=== PATIENT | female | born 1980 | race Caucasian/White ===

== ENCOUNTER 2017-07-14 18:04 | Emergency (ER) | payer BC ==
[2017-07-14 18:10] VITALS: BP 131/87; PULSE 76; TEMP 98.6; BMI 21.2
--- NOTE | 2017-07-14 19:16 | PDOC ---
History of Present Illness - General History Source: Old Records Exam Limitations: No Limitations - History of Present Illness Initial Comments: 07/14/17 19:54 36 y.o female with significant PMHx of HTN, s/p Cardiac ablation (2004), spontaneous pneumothorax, polycystic kidney disease, and migraine headaches, who presents to the emergency room today complaining of 3 days of a sore throat , nonproductive cough, body aches and chills. The patient denies nausea, vomiting, diarrhea. Denies chest pain, SOB. Denies recent travel or sick contact. PAST SURGICAL HISTORY: Cardiac ablation 2004 FAMILY HISTORY: no pertinent history SOCIAL HISTORY: Pt lives with family and is employed. MEDICATIONS: reviewed ALLERGIES: As per nursing notes PCP: Dr. Kayleigh Mckoy Review of systems General: +chills, body aches. No weakness, no weight loss HEENT: +sore throat. No change in vision. No ear pain Cardiovascular: No chest pain or shortness of breath Respiratory:+nonproductive cough. No wheezing. Gastrointestinal: No nausea, vomiting, diarrhea or constipation, No rectal bleeding Genitourinary: No dysuria, hematuria, or frequency Musculoskeletal: No joint or muscle pain or swelling Neurologic: No headache, vertigo, dizziness or loss of consciousness Psychiatric: No depression Skin: No rashes or easy bruising Endocrine: No increased thirst or abnormal weight change Allergic: No skin or latex allergy All other systems reviewed and normal Physical Exam GENERAL: The patient is awake, alert, and fully oriented, in no acute distress. HEENT: Posterior oropharynx with enlarged tonsils and surrounding erythema. No lesions. No exudate. No submandibular lymphadenopathy EYES: Pupils equal, round and reactive to light, extraocular movements intact, sclera anicteric, conjunctiva clear. EXTREMITIES: Normal range of motion, no edema. NEUROLOGICAL: Normal speech, normal gait. PSYCH: Normal mood, normal affect. SKIN: Warm, Dry, normal turgor, no rashes or lesions noted. <Basilio Badillossica - Last Filed: 07/14/17 19:55> - General History Source: Patient Exam Limitations: No Limitations - History of Present Illness Initial Comments: A portion of this note was documented by scribe services under my direction. I have reviewed the details of the note, within reason, and agree with the documentation. The case summary and management plan written by me. Assessment and plan: This is a 36-year-old female who comes in complaining of 2 days of fever and bodyaches and headaches. Patient has a nonproductive cough. Patient had also complained of a sore throat so a rapid strep was sent which was negative. Patient had an influenza screen sent as she did not get the flu shot this year. The influenza screen is still pending however patient's symptoms are consistent with presumptive flu so I will start her on Tamiflu discharge her said a prescription to her pharmacy and tomorrow morning she will call if the test was negative she will not get the prescription filled otherwise if it is positive she will get the prescription filled and take it as directed. Patient does have a primary care doctor she can follow-up with. Timing/Duration: reports: just prior to arrival <Uzma Griggs I - Last Filed: 07/14/17 20:21> - General Chief Complaint: Cold Symptoms Stated Complaint: SORE THROAT,COUGH Time Seen by Provider: 07/14/17 19:14 Past History <Gertrude Badillo - Last Filed: 07/14/17 19:55> - Past Medical History Asthma: No Cardiac Disorders: Yes (TACHYCARDIA WITH ABALTION 2004) CVA: No COPD: No Diabetes: No HTN: Yes Hypercholesterolemia: No Kidney Stones: Yes Other medical history: WPW - Surgical History Cardiac Surgery: Yes (ABLATION: 2004) Lung Surgery: Yes (L PNEUMOTHORAX) - Suicide/Smoking/Psychosocial Hx Smoking Status: No Smoking History: Never smoked Have you smoked in the past 12 months: No Number of Cigarettes Smoked Daily: 0 Hx Alcohol Use: No Drug/Substance Use Hx: No Substance Use Type: None <Uzma Griggs I - Last Filed: 07/14/17 20:21> - Past Medical History Allergies/Adverse Reactions: Allergies Allergy/AdvReac Type Severity Reaction Status Date / Time No Known Allergies Allergy Verified 07/14/17 18:05 Home Medications: Ambulatory Orders Hydrochlorothiazide [Hctz -] 25 mg PO DAILY 04/18/12 Metoprolol Succinate [Toprol XL -] 50 mg PO DAILY 07/14/17 Oseltamivir Phosphate [Tamiflu -] 75 mg PO BID #10 capsule 07/14/17 Respiratory Specific PMHX - Complaint Specific PMHX Angina: No Bronchitis: No Pneumonia: No Pulmonary Embolus: No TB (Tuberculosis): No <Uzma Griggs I - Last Filed: 07/14/17 20:21> *Physical Exam - Vital Signs Last Vital Signs Temp Pulse Resp BP Pulse Ox 98.6 F 76 18 131/87 100 07/14/17 18:05 07/14/17 18:05 07/14/17 18:05 07/14/17 18:05 07/14/17 18:05 <Gertrude Badillo - Last Filed: 07/14/17 19:55> - Vital Signs Last Vital Signs Temp Pulse Resp BP Pulse Ox 98.6 F 76 18 131/87 100 07/14/17 18:05 07/14/17 18:05 07/14/17 18:05 07/14/17 18:05 07/14/17 18:05 <Uzma Griggs I - Last Filed: 07/14/17 20:21> ED Treatment Course - ADDITIONAL ORDERS Additional order review: 07/14/17 18:43 Group A Strep Rapid Antigen - Final Throat NEGATIVE FOR THE ANTIGEN OF BETA HEMOLYTIC STREP GROUP A <Gertrude Badillo - Last Filed: 07/14/17 19:55> - ADDITIONAL ORDERS Additional order review: 07/14/17 18:43 Group A Strep Rapid Antigen - Final Throat NEGATIVE FOR THE ANTIGEN OF BETA HEMOLYTIC STREP GROUP A <Uzma Griggs I - Last Filed: 07/14/17 20:21> *DC/Admit/Observation/Transfer - Attestations Scribe Attestion: 07/14/17 19:54 Documentation prepared by JOSÉ MANUEL French, acting as medical assistant instructor for Uzma Griggs MD. <Gertrude Badillo - Last Filed: 07/14/17 19:55> - Discharge Dispostion Admit: No <Uzma Griggs I - Last Filed: 07/14/17 20:21> Diagnosis at time of Disposition: Influenza-like illness - Discharge Dispostion Disposition: HOME Condition at time of disposition: Stable - Referrals Referrals: Kayleigh Mckoy [Primary Care Provider] - - Patient Instructions Additional Instructions: Your symptoms are consistent with the flu. A test was sent for the flu however it will take several hours until it may come back. I am starting U on the medication for the flu and given your first dose here in the emergency room Tomorrow morning call the ER at [phone] and we will give you the results of your influenza screen. If it is positive go to the pharmacy and order picker her prescription for the Tamiflu take it one tablet twice a day for the next 5 days. Return to the emergency department immediately with ANY new, persistent or worsening symptoms. Continue any medications as previously prescribed by your physician. You should follow up with your primary doctor as soon as possible regarding today's emergency department visit. . Please make sure your doctor reviews the results of your emergency evaluation. Thank you for coming to the Emergency Department today for your care. It was a pleasure to see you today. Please note that your evaluation is INCOMPLETE until you follow-up with your doctor. - Post Discharge Activity Forms/Work/School Notes: Back to Work
[2017-07-14] MEDS ORDERED: OSELTAMIVIR PHOSPHATE 75 MG CAPSULE PO ONE (20:17)
[2017-07-14] MEDS ORDERED: ACETAMINOPHEN 500 MG TABLET (FP) PO ONE (20:17)
[2017-07-14] MEDS ORDERED: OSELTAMIVIR PHOSPHATE 75 MG CAPSULE ONE (20:19)
[2017-07-14] MEDS ORDERED: ACETAMINOPHEN 500 MG TABLET (FP) ONE (20:20)
== END 2017-07-14 20:25 | disposition home or self-care (01) ==
LOC: FER 18:04
DX: J00 Acute nasopharyngitis [common cold] (principal); I10 Essential (primary) hypertension; G43.909 Migraine, unspecified, not intractable, without status migrainosus; I51.9 Heart disease, unspecified
CPT/HCPCS: 87070; 87430; 87804; 99281-25

== ENCOUNTER 2017-09-17 18:34 | Emergency (ER) | payer BC ==
[2017-09-17 19:09] VITALS: BP 143/94; PULSE 60; TEMP 98.1; BMI 21.9
--- NOTE | 2017-09-17 19:59 | PDOC ---
History of Present Illness - General History Source: Patient, Old Records Exam Limitations: No Limitations - History of Present Illness Initial Comments: 09/17/17 20:27 The patient is a 37 year old female with a paste medical history of hypertension , status post Cardiac ablation (2004), spontaneous pneumothorax, polycystic kidney disease, and migraine headaches who presents to the Emergency Department with left forearm pain for 1 week and high blood pressure for 2 days. The patient states that she is unsure if there was any mechanism of injury that caused her left forearm pain. She notes that her pain starts proximally, radiates distally, and is lawrence in sensation. She states that her pain is exacerbated when she squeezes her forearm but denies any exacerbation of pain on movement. The patient notes that she saw her creel hand yesterday who noted that her blood pressure was high and that she should continue to monitor it. Today at work the patient went to the school nurse to have her blood pressure measured again. At that time the nurse noted to the patients blood pressure was still high. The patient called her doctor who told her to come to the Emergency department. <Elieser Carranza - Last Filed: 09/17/17 22:01> <Keily Jimenez - Last Filed: 09/18/17 03:36> - General Chief Complaint: Blood Pressure Problem Stated Complaint: HIGH BP, LEFT ELBOW TO WRIST PAIN Time Seen by Provider: 09/17/17 19:19 Past History <Elieser Carranza - Last Filed: 09/17/17 22:01> - Past Medical History Asthma: No Cardiac Disorders: Yes (WPW) CVA: No COPD: No Diabetes: No Disorders: Yes (POLYCYSTIC KIDNEY DISEASE) HTN: Yes Hypercholesterolemia: No Kidney Stones: (POLYCYSTIC KIDNEY) - Surgical History Cardiac Surgery: Yes (ABLATION: 2004 AND 2012) Lung Surgery: Yes (L PNEUMOTHORAX) - Suicide/Smoking/Psychosocial Hx Smoking Status: No Smoking History: Never smoked Have you smoked in the past 12 months: No Number of Cigarettes Smoked Daily: 0 Hx Alcohol Use: Yes (OCCASIONAL GLASS OF WINE) Drug/Substance Use Hx: No Substance Use Type: None <Keily Jimenez - Last Filed: 09/18/17 03:36> - Past Medical History Allergies/Adverse Reactions: Allergies Allergy/AdvReac Type Severity Reaction Status Date / Time No Known Allergies Allergy Verified 07/14/17 18:05 Home Medications: Ambulatory Orders Hydrochlorothiazide [Hctz -] 25 mg PO DAILY 04/18/12 Metoprolol Succinate [Toprol XL -] 50 mg PO HS 07/14/17 Multivitamin/Iron/Folic Acid [Centrum Adults Tablet] 1 each PO DAILY 09/17/17 Review of Systems - Review of Systems Able to Perform ROS?: Yes Comments:: 09/17/17 20:27 GENERAL/CONSTITUTIONAL: No fever or chills. No weakness. HEAD, EYES, EARS, NOSE AND THROAT: No change in vision. No ear pain or discharge. No sore throat. CARDIOVASCULAR: (+) Elevated blood pressure. No chest pain or shortness of breath. RESPIRATORY: No cough, wheezing, or hemoptysis. GASTROINTESTINAL: No nausea, vomiting, diarrhea or constipation. GENITOURINARY: No dysuria, frequency, or change in urination. MUSCULOSKELETAL: (+) Left forearm pain. No neck or back pain. SKIN: No rash NEUROLOGIC: No headache, vertigo, loss of consciousness, or change in strength/ sensation. ENDOCRINE: No increased thirst. No abnormal weight change. HEMATOLOGIC/LYMPHATIC: No anemia, easy bleeding, or history of blood clots. ALLERGIC/IMMUNOLOGIC: No hives or skin allergy. <Elieser Carranza - Last Filed: 09/17/17 22:01> *Physical Exam - Vital Signs Last Vital Signs Temp Pulse Resp BP Pulse Ox 98.1 F 60 16 143/94 100 09/17/17 18:36 09/17/17 18:36 09/17/17 18:36 09/17/17 18:36 09/17/17 18:36 - Physical Exam Comments: 09/17/17 20:27 GENERAL: Awake, alert, and fully oriented, in no acute distress HEAD: No signs of trauma EYES: PERRLA, EOMI, sclera anicteric, conjunctiva clear ENT: Auricles normal inspection, hearing grossly normal, nares patent, oropharynx clear without exudates. Moist mucosa NECK: Normal ROM, supple, no lymphadenopathy, JVD, or masses LUNGS: Breath sounds equal, clear to auscultation bilaterally. No wheezes, and no crackles HEART: Regular rate and rhythm, normal S1 and S2, no murmurs, rubs or gallops ABDOMEN: Soft, nontender, normoactive bowel sounds. No guarding, no rebound. No masses EXTREMITIES: (+) Pain on supination of left forearm and tenderness of the medial portion of the proximal ulna bone without deformity, edema, or ecchymosis , remainder of the extremity exam is normal. NEUROLOGICAL: Cranial nerves II through XII grossly intact. Normal speech, normal gait SKIN: Warm, Dry, normal turgor, no rashes or lesions noted. <Elieser Carranza - Last Filed: 09/17/17 22:01> - Vital Signs Last Vital Signs Temp Pulse Resp BP Pulse Ox 98.1 F 60 16 143/94 100 09/17/17 18:36 09/17/17 18:36 09/17/17 18:36 09/17/17 18:36 09/17/17 18:36 <Keily Jimenez - Last Filed: 09/18/17 03:36> Medical Decision Making - Medical Decision Making Documentation has been prepared under my direction and personally reviewed by me in its entirety. I attest that this documented accurately reflects all work, treatment, procedures and medical decision making performed by me. As noted above, this 37-year-old woman with multiple medical problems presents with several day history of progressive left forearm pain; she has no history of trauma or known overuse. She has mild tenderness of the proximal portion of the forearm and pain with supination/pronation. She is also sent here for evaluation of her blood pressure which with apparently was quite elevated earlier today. The value that we measured today, 143/94, while high is not severely elevated requiring treatment emergently. Forearm x-ray reveals no evidence of acute bony injury or other acute abnormality. Exam most consistent with medial epicondylitis. Margarito wrap applied to the proximal forearm. Patient has no previous orthopedist and was given referral information for Dr Khan/Dr. Ng for follow-up within the next week. Meanwhile, the patient should keep the Margarito wrap on during the day/off at night. Since the patient cannot take nonsteroidal anti-inflammatory medications, she is limited to taking Tylenol as needed for pain. <Keily Jimenez - Last Filed: 09/18/17 03:36> *DC/Admit/Observation/Transfer - Attestations Scribe Attestion: 09/17/17 20:28 Documentation prepared by Elieser Carranza, acting as medical imaging director for Keily Jimenez MD. <Elieser Carranza - Last Filed: 09/17/17 22:01> <Keily Jimenez - Last Filed: 09/18/17 03:36> Diagnosis at time of Disposition: Medial epicondylitis of left elbow Hypertension Qualifiers: Hypertension type: other secondary hypertension Qualified Code(s): I15.8 - Other secondary hypertension - Discharge Dispostion Disposition: HOME Condition at time of disposition: Stable - Referrals Referrals: Kayleigh Mckoy [Primary Care Provider] - Benigno Khan MD [Staff Physician] - - Patient Instructions Printed Discharge Instructions: Medial Epicondylitis Additional Instructions: Margarito wrap left forearm during the day until seen by orthopedist Follow-up with Dr. Khan/Dr Ng (hand orthopedic surgeons) within the next week Follow-up with your general doctor regarding your high blood pressure control as discussed - Post Discharge Activity
== END 2017-09-17 23:27 | disposition home or self-care (01) ==
LOC: FER 18:34
DX: I15.8 Other secondary hypertension (principal); M77.02 Medial epicondylitis, left elbow
CPT/HCPCS: 73090-TC-LT-FY; 84703; 99282-25

== ENCOUNTER 2017-09-18 12:44 | Emergency (ER) | payer BC ==
[2017-09-18 12:50] VITALS: BP 134/82; PULSE 65; TEMP 98.6; BMI 21.9
[2017-09-18] MEDS ORDERED: ACETAMINOPHEN 325 MG TABLET (FP) ONE (13:38)
--- NOTE | 2017-09-18 13:40 | PDOC ---
History of Present Illness - General Chief Complaint: Pain, Acute Stated Complaint: SWOLLEN LT ARM Time Seen by Provider: 09/18/17 13:03 History Source: Patient Exam Limitations: No Limitations - History of Present Illness Occurred: reports: yesterday Severity: reports: mild, moderate Pain Location: reports: lower extremity Associated Symptoms (Fall): denies symptoms Past History - Travel Traveled outside of the country in the last 30 days: No Close contact w/someone who was outside of country & ill: No - Past Medical History Allergies/Adverse Reactions: Allergies Allergy/AdvReac Type Severity Reaction Status Date / Time No Known Allergies Allergy Verified 09/18/17 12:47 Home Medications: Ambulatory Orders Hydrochlorothiazide [Hctz -] 25 mg PO DAILY 04/18/12 Metoprolol Succinate [Toprol XL -] 50 mg PO HS 07/14/17 Multivitamin/Iron/Folic Acid [Centrum Adults Tablet] 1 each PO DAILY 09/17/17 Asthma: No Cardiac Disorders: Yes (WPW) CVA: No COPD: No Diabetes: No Disorders: Yes (POLYCYSTIC KIDNEY DISEASE) HTN: Yes Hypercholesterolemia: No Kidney Stones: (POLYCYSTIC KIDNEY) - Surgical History Cardiac Surgery: Yes (ABLATION: 2004 AND 2012) Lung Surgery: Yes (L PNEUMOTHORAX) - Suicide/Smoking/Psychosocial Hx Smoking Status: No Smoking History: Never smoked Have you smoked in the past 12 months: No Number of Cigarettes Smoked Daily: 0 Hx Alcohol Use: Yes (OCCASIONAL GLASS OF WINE) Drug/Substance Use Hx: No Substance Use Type: None Trauma Specific PMHX - Complaint Specific PMHX Back Injury: No Neck Injury: No Review of Systems - Review of Systems Able to Perform ROS?: Yes Is the patient limited Niuean proficient: Yes Constitutional: Yes: Symptoms Reported, See HPI, Malaise. No: Fever HEENTM: Yes: See HPI. No: Symptoms Reported Respiratory: Yes: See HPI. No: Symptoms reported *Physical Exam - Vital Signs Last Vital Signs Temp Pulse Resp BP Pulse Ox 98.6 F 65 18 134/82 100 09/18/17 12:47 09/18/17 12:47 09/18/17 12:47 09/18/17 12:47 09/18/17 12:47 *DC/Admit/Observation/Transfer - Referrals Referrals: Kayleigh Mckoy [Primary Care Provider] - - Patient Instructions - Post Discharge Activity
[2017-09-18] MEDS ORDERED: ACETAMINOPHEN 500 MG TABLET (FP) PO ONE (13:46)
--- NOTE | 2017-09-18 16:11 | PDOC ---
History of Present Illness - General Chief Complaint: Pain, Acute Stated Complaint: SWOLLEN LT ARM Time Seen by Provider: 09/18/17 13:03 History Source: Patient Exam Limitations: No Limitations - History of Present Illness Initial Comments: 09/18/17 16:11 37-year-old female with history of WPW, hypertension, polycystic kidney disease , and ablation in 2004 at 2012. Patient sent over from fast track for evaluation of left arm pain which she's had for the past 2 days. patient also has history of left pneumothorax. Patient states is frequently picking up her children but denies any direct injury. Patient is no complaints of sensory changes distal weakness of the extremity or limited range of motion. Patient does complain of skin discoloration. Timing/Duration: constant, getting worse Severity: mild Associated Symptoms: reports: denies symptoms Aspirin Received prior to arrival: Yes: no aspirin today Past History - Travel Traveled outside of the country in the last 30 days: No - Past Medical History Allergies/Adverse Reactions: Allergies Allergy/AdvReac Type Severity Reaction Status Date / Time No Known Allergies Allergy Verified 09/18/17 12:47 Home Medications: Ambulatory Orders Hydrochlorothiazide [Hctz -] 25 mg PO DAILY 04/18/12 Metoprolol Succinate [Toprol XL -] 50 mg PO HS 07/14/17 Multivitamin/Iron/Folic Acid [Centrum Adults Tablet] 1 each PO DAILY 09/17/17 Asthma: No Cardiac Disorders: Yes (WPW) CVA: No COPD: No Diabetes: No Disorders: Yes (POLYCYSTIC KIDNEY DISEASE) HTN: Yes Hypercholesterolemia: No Kidney Stones: (POLYCYSTIC KIDNEY) - Surgical History Cardiac Surgery: Yes (ABLATION: 2004 AND 2012) Lung Surgery: Yes (L PNEUMOTHORAX) - Suicide/Smoking/Psychosocial Hx Smoking Status: No Smoking History: Never smoked Have you smoked in the past 12 months: No Number of Cigarettes Smoked Daily: 0 Hx Alcohol Use: Yes (OCCASIONAL GLASS OF WINE) Drug/Substance Use Hx: No Substance Use Type: None Patient Lives Alone: No Lives with/in: spouse/SO Review of Systems - Review of Systems Able to Perform ROS?: Yes Musculoskeletal: Yes: Joint Pain (left elbow). No: Joint Stiffness Integumentary: Yes: Change in Color Neurological: No: Symptoms reported Hematologic/Lymphatic: Yes: See HPI *Physical Exam - Vital Signs Last Vital Signs Temp Pulse Resp BP Pulse Ox 98.6 F 65 18 134/82 100 09/18/17 12:47 09/18/17 12:47 09/18/17 12:47 09/18/17 12:47 09/18/17 12:47 - Physical Exam General Appearance: Yes: Nourished, Appropriately Dressed. No: Apparent Distress Neck: positive: Supple Respiratory/Chest: positive: Lungs Clear, Normal Breath Sounds. negative: Respiratory Distress, Accessory Muscle Use Cardiovascular: positive: Regular Rhythm, Regular Rate. negative: Murmur Gastrointestinal/Abdominal: positive: Soft. negative: Tenderness Extremity: positive: Normal Capillary Refill, Swelling (generalized mild left hand). negative: Normal Range of Motion, Pedal Edema Integumentary: positive: Warm, Moist Neurologic: positive: Normal Mood/Affect, Motor Strength 5/5 (ambulatory) ED Treatment Course - Medications Given in the ED: ED Medications Discontinued Medications Generic Name Dose Route Start Last Admin Trade Name Freq PRN Reason Stop Dose Admin Acetaminophen 650 mg 09/18/17 13:46 09/18/17 14:00 Tylenol - PO 09/18/17 13:47 650 mg ONCE ONE Administration Medical Decision Making - Medical Decision Making 09/18/17 16:15 Patient complains of left arm pain. Patient states took nothing for the above and came to the ER. Patient was told by Dr. Sims that she should go to the main ER secondary to medical history. Patient was ordered for imaging. Including an ultrasound of the left upper extremity arterial/ vascular. Patient ordered for Tylenol. will reassess shortly 09/18/17 17:00 Arterial duplex of the left upper extremity shows no evidence of occlusions or significant stenosis. Patient states feeling better after the Tylenol. Patient to be discharged home to follow-up with her PCP and to take Tylenol for discomfort. *DC/Admit/Observation/Transfer Diagnosis at time of Disposition: Left arm pain - Discharge Dispostion Disposition: HOME Condition at time of disposition: Improved - Referrals Referrals: Kayleigh Mckoy [Primary Care Provider] - - Patient Instructions Printed Discharge Instructions: DI for Arm Pain Additional Instructions: May take Tylenol 650 mg to 1000 mg as needed for discomfort. Continue to elevate but move arm as needed to avoid stiffness. Return to the ED any given time of symptoms worsen - Post Discharge Activity
== END 2017-09-18 18:25 | disposition home or self-care (01) ==
LOC: JER 12:44 → JERFT 12:44 → JER 18:25
DX: M79.602 Pain in left arm (principal); I10 Essential (primary) hypertension; Q61.3 Polycystic kidney, unspecified; Z86.79 Personal history of other diseases of the circulatory system
CPT/HCPCS: 93931; 93971; 99282-25

== ENCOUNTER 2018-02-24 17:21 | Emergency (ER) | payer BC ==
--- NOTE | 2018-02-24 17:36 | PDOC ---
Rapid Medical Evaluation Time Seen by Provider: 02/24/18 17:33 Medical Evaluation: Allergies Allergy/AdvReac Type Severity Reaction Status Date / Time No Known Allergies Allergy Verified 09/18/17 12:47 02/24/18 17:33 I have performed a brief in-person evaluation of this patient. The patient presents with a chief complaint of: RUQ and R flank pain X 2 days, + nausea, no vomiting. Sent by PCP Pertinent physical exam findings:+ RUQ tenderness I have ordered the following:UA, basic labs/sono The patient will proceed to the ED for further evaluation. 02/24/18 17:37 02/24/18 17:39 Discharge Disposition - Diagnosis Abdominal pain Qualifiers: Abdominal location: right upper quadrant Qualified Code(s): R10.11 - Right upper quadrant pain - Referrals Referrals: Kayleigh Mckoy [Primary Care Provider] - - Patient Instructions - Post Discharge Activity
[2018-02-24 17:37] VITALS: TEMP 98.3; BMI 21.0
[2018-02-24 19:53] LABS: HEMATOCRIT 39.7 % (32.4-45.2); HEMOGLOBIN 13.8 GM/dL (10.7-15.3); MCH 34.1 pg (25.7-33.7); MCHC 34.7 g/dl (32.0-36.0); MEAN CELL VOLUME 98.3 fl (80-96); MEAN PLT VOLUME 8.5 fl (7.5-11.1); PLATELET COUNT 257 K/MM3 (134-434); RBC 4.04 M/mm3 (3.60-5.2); RDW 12.8 % (11.6-15.6)
--- NOTE | 2018-02-24 20:09 | PDOC ---
History of Present Illness - General Chief Complaint: Pain Stated Complaint: SENT PCP Time Seen by Provider: 02/24/18 17:33 History Source: Patient - History of Present Illness Timing/Duration: reports: intermittent Abdominal Pain Onset Location: reports: RUQ Past History - Past Medical History Allergies/Adverse Reactions: Allergies Allergy/AdvReac Type Severity Reaction Status Date / Time No Known Allergies Allergy Verified 02/24/18 17:37 Home Medications: Ambulatory Orders Hydrochlorothiazide [Hctz -] 50 mg PO DAILY 04/18/12 Metoprolol Succinate [Toprol XL -] 50 mg PO HS 07/14/17 Multivitamin/Iron/Folic Acid [Centrum Adults Tablet] 1 each PO DAILY 09/17/17 Asthma: No Cardiac Disorders: Yes (WPW) CVA: No COPD: No Diabetes: No Disorders: Yes (POLYCYSTIC KIDNEY DISEASE) HTN: Yes Hypercholesterolemia: No Kidney Stones: (POLYCYSTIC KIDNEY) - Surgical History Cardiac Surgery: Yes (ABLATION: 2004 AND 2012) Lung Surgery: Yes (L PNEUMOTHORAX) - Suicide/Smoking/Psychosocial Hx Smoking Status: No Smoking History: Never smoked Have you smoked in the past 12 months: No Number of Cigarettes Smoked Daily: 0 Information on smoking cessation initiated: No Hx Alcohol Use: No Drug/Substance Use Hx: No Substance Use Type: None Review of Systems - Review of Systems Constitutional: No: Chills, Fever Respiratory: No: Cough, Shortness of Breath Cardiac (ROS): No: Chest Pain, Palpitations ABD/GI: Yes: Nausea. No: Blood Streaked Bowels, Constipated, Diarrhea, Rectal Bleeding, Vomiting : Yes: Flank Pain. No: Burning, Dysuria, Discharge, Frequency, Hematuria *Physical Exam - Vital Signs Last Vital Signs Temp Pulse Resp BP Pulse Ox 98.3 F 82 16 136/99 100 02/24/18 17:34 02/24/18 17:34 02/24/18 17:34 02/24/18 17:34 02/24/18 17:34 - Physical Exam General Appearance: Yes: Appropriately Dressed. No: Apparent Distress HEENT: positive: Normal Voice Neck: positive: Supple Respiratory/Chest: positive: Lungs Clear, Normal Breath Sounds. negative: Respiratory Distress Cardiovascular: positive: Regular Rate, S1, S2 Gastrointestinal/Abdominal: positive: Tender (minimal ttp to R mid abd, NT over mcburneys, neg CVAT) Extremity: positive: Normal Inspection Integumentary: positive: Dry, Warm Neurologic: positive: Fully Oriented, Alert, Normal Mood/Affect ED Treatment Course - LABORATORY CBC & Chemistry Diagram: 02/24/18 19:40 02/24/18 19:40 - ADDITIONAL ORDERS Additional order review: 02/24/18 19:40 RBC 4.04 MCV 98.3 H MCHC 34.7 RDW 12.8 MPV 8.5 - RADIOLOGY Radiology Studies Ordered: Category Date Time Status ABDOMEN & PELVIS CT W/O CONTR [CT] Stat CT Scan 02/24/18 20:03 Ordered Medical Decision Making - Medical Decision Making 02/24/18 20:04 7-year-old female, history of polycystic kidney disease, renal stones, recurrent UTIs, s/p tubal ligation, here with right flank pain. Patient states several days ago, she experiences "shooting pain" to R upper back that has since resolved, but 3 days ago developed RUQ "discomfort" that extends to right mid abdomen, intermittent with no worsening or alleviating factors. + nausea, no vomiting, dysuria, hematuria, fever, chills or acute change in BM. States she has been told she had kidney stones in the past but has never had to seek medical evaluation for same. Current sxs does not feel like her prior utis per pt. States she saw Dr. Marie of GI this a.m. 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
[2018-02-24 20:18] LABS: ALBUMIN 4.6 g/dl (3.4-5.0); ALK PHOS 45 U/L (45-117); ANION GAP 10 MMOL/L (8-16); BILIRUBIN,TOTAL 0.7 mg/dL (0.2-1.0); BLOOD UREA NITROGEN 11 mg/dL (7-18); CHLORIDE 100 mmol/L (98-107); CO2 29 mmol/L (21-32); CREATININE 0.6 mg/dL (0.55-1.02); GLUCOSE,RANDOM 82 mg/dL (74-106); SGOT/AST 17 U/L (15-37); SGPT/ALT 21 U/L (12-78); SODIUM 139 mmol/L (136-145); TOT PROT 8.6 g/dl (6.4-8.2)
[2018-02-24 21:03] LABS: URINE APPEARANCE CLOUDY; URINE BILIRUBIN NEGATIVE (<2.0 mg/dL); URINE COLOR LTYELLOW; URINE GLUCOSE (UA) NEGATIVE (NEGATIVE); URINE KETONE NEGATIVE (NEGATIVE); URINE LEUK ESTERASE TRACE (NEGATIVE); URINE NITRITE NEGATIVE (NEGATIVE); URINE PROTEIN NEGATIVE (NEGATIVE); URINE UROBILINOGEN NEGATIVE mg/dL (0.2-1.0)
[2018-02-24 21:07] LABS: HCG,QUALITATIVE URINE Negative
[2018-02-24 21:09] LABS: EPI CELLS FEW /HPF (FEW); URINE BACTERIA MODERATE /hpf (NONE SEEN)
[2018-02-24] MEDS ORDERED: IBUPROFEN 600 MG TABLET (FP) PO ONE ×2 (22:39→22:42)
[2018-02-24] MEDS ORDERED: ACETAMINOPHEN 325 MG TABLET (FP) PO ONE (22:43)
[2018-02-24] MEDS ORDERED: ACETAMINOPHEN 325 MG TABLET (FP) ONE (22:44)
[2018-02-24] MEDS ORDERED: SULFAMETHOXAZOLE/TRIMETHOPRIM 800MG/160MG D.S. TABLET PO ONE (22:47)
--- NOTE | 2018-02-24 22:48 | PDOC ---
*Physical Exam - Vital Signs Last Vital Signs Temp Pulse Resp BP Pulse Ox 98.3 F 78 18 132/82 100 02/24/18 17:34 02/24/18 21:37 02/24/18 21:37 02/24/18 21:37 02/24/18 21:37 - Physical Exam General Appearance: Yes: Appropriately Dressed Musculoskeletal: positive: Normal Inspection. negative: CVA Tenderness Extremity: positive: Normal Capillary Refill, Normal Inspection, Normal Range of Motion Integumentary: positive: Normal Color, Dry Neurologic: positive: Fully Oriented, Alert ED Treatment Course - LABORATORY CBC & Chemistry Diagram: 02/24/18 19:40 02/24/18 19:40 - ADDITIONAL ORDERS Additional order review: Laboratory Results 02/24/18 02/24/18 02/24/18 20:35 19:40 19:40 Sodium Potassium Chloride Carbon Dioxide Anion Gap BUN Creatinine Creat Clearance w eGFR Random Glucose Calcium Total Bilirubin AST ALT Alkaline Phosphatase Total Protein Albumin Lipase 160 Serum , Qual Negative Urine Color Ltyellow Urine Appearance Cloudy Urine pH 8.0 Ur Specific [place] 1.008 Urine Protein Negative Urine Glucose (UA) Negative Urine Ketones Negative Urine Blood Negative Urine Nitrite Negative Urine Bilirubin Negative Urine Urobilinogen Negative Ur Leukocyte Esterase Trace Urine WBC (Auto) 6 Urine RBC (Auto) 1 Ur Epithelial Cells Few Urine Bacteria Moderate Urine HCG, Qual Negative 02/24/18 19:40 Sodium 139 Potassium 3.0 L Chloride 100 Carbon Dioxide 29 Anion Gap 10 BUN 11 Creatinine 0.6 Creat Clearance w eGFR > 60 Random Glucose 82 Calcium 10.0 Total Bilirubin 0.7 AST 17 ALT 21 Alkaline Phosphatase 45 Total Protein 8.6 H Albumin 4.6 Lipase Serum , Qual Urine Color Urine Appearance Urine pH Ur Specific [place] Urine Protein Urine Glucose (UA) Urine Ketones Urine Blood Urine Nitrite Urine Bilirubin Urine Urobilinogen Ur Leukocyte Esterase Urine WBC (Auto) Urine RBC (Auto) Ur Epithelial Cells Urine Bacteria Urine HCG, Qual 02/24/18 19:40 RBC 4.04 MCV 98.3 H MCHC 34.7 RDW 12.8 MPV 8.5 *DC/Admit/Observation/Transfer Diagnosis at time of Disposition: Right flank pain UTI (urinary tract infection) Qualifiers: Urinary tract infection type: acute cystitis Hematuria presence: without hematuria Qualified Code(s): N30.00 - Acute cystitis without hematuria - Discharge Dispostion Disposition: HOME - Prescriptions Prescriptions: Sulfamethoxazole/Trimethoprim [Bactrim Ds -] 1 tab PO BID #6 tablet - Referrals Referrals: Kayleigh Mckoy [Primary Care Provider] - Call tomorrow - Patient Instructions Printed Discharge Instructions: Acute Cystitis Additional Instructions: drink plenty of fluids follow up with your doctor take bactrim twice daily as prescribed. return to the ER of symptoms worsen. - Post Discharge Activity
[2018-02-24] MEDS ORDERED: SULFAMETHOXAZOLE/TRIMETHOPRIM 800MG/160MG D.S. TABLET ONE (22:57)
[2018-02-24 23:02] VITALS: BP 130/80; PULSE 72
== END 2018-02-24 23:02 | disposition home or self-care (01) ==
LOC: JER 17:21
DX: R10.31 Right lower quadrant pain (principal)
CPT/HCPCS: 36415; 74176-TC; 76700-TC; 80053; 81003; 81015; 83690; 84703; 85027; 99282-25

== ENCOUNTER 2018-04-10 15:59 | Emergency (ER) | payer BC ==
--- NOTE | 2018-04-10 16:23 | PDOC ---
History of Present Illness - General Stated Complaint: BLOOD PRESSURE PROBLEM Time Seen by Provider: 04/10/18 16:21 - History of Present Illness Initial Comments: 37 yo F w a hx of history of WPW, HTN, migraines, polycystic kidney disease, renal stones, recurrent UTIs, s/p tubal ligation, presents from her cardiologists office - Dr. Fry - with a headache, nausea, and feeling off. She states her headache began earlier today was gradual in onset, not the worst headache of her life, and is bilateral all around her head. She requests tylenol for her headache. She endorses nausea but denies emesis. She also had an episode of palpitations earlier today but is not experiencing them now in the ER. She has an elevated BP at 158/103 on presentation to the ER. She takes HCTZ and metoprolol for HTN but did not take them today. LMP: She is on it now, started yesterday. Shop Service Technician: Dr. Arriaza PCP: Mare Kothari Allergies: NKA, JOSEPHDA Social Hx: Denies, smoking, drinking or illicit drug usage. Past History - Past Medical History Allergies/Adverse Reactions: Allergies Allergy/AdvReac Type Severity Reaction Status Date / Time No Known Allergies Allergy Verified 04/10/18 16:41 Home Medications: Ambulatory Orders Hydrochlorothiazide [Hctz -] 50 mg PO DAILY 04/18/12 Metoprolol Succinate [Toprol XL -] 50 mg PO HS 07/14/17 Asthma: No Cardiac Disorders: Yes (WPW) CVA: No COPD: No Diabetes: No Disorders: Yes (POLYCYSTIC KIDNEY DISEASE) HTN: Yes Hypercholesterolemia: No Kidney Stones: (POLYCYSTIC KIDNEY) - Surgical History Cardiac Surgery: Yes (ABLATION: 2004 AND 2012) Lung Surgery: Yes (L PNEUMOTHORAX) - Suicide/Smoking/Psychosocial Hx Smoking Status: No Smoking History: Never smoked Have you smoked in the past 12 months: No Number of Cigarettes Smoked Daily: 0 Hx Alcohol Use: No Drug/Substance Use Hx: No Substance Use Type: None Review of Systems - Review of Systems Comments:: CONSTITUTIONAL: Absent: fever, no chills, no fatigue EYES: Absent: visual changes ENT: Absent: ear pain, no sore throat CARDIOVASCULAR: Present: Palpitations Absent: chest pain RESPIRATORY: Present: Cough, SOB Absent: Sputum GI: Present: Nausea Absent: abdominal pain, no vomiting, no constipation, no diarrhea GENITOURINARY: Absent: dysuria, no frequency, no hematuria MUSKULOSKELETAL: Absent: back pain, no arthralgia, no myalgia SKIN: Absent: rash NEURO: Present: headache *Physical Exam - Physical Exam Comments: BP at bedside: 138/90 HR: 71 RR: 14 O2: 100% RA Temp: 99.3 GENERAL: She is lying down trying to avoid the light. States she has a bad headache. HEENT: Normocephalic, atraumatic. PERRL, EOM intact. CARDIOVASCULAR: Normal S1, S2. Regular rate and rhythm. PULMONARY: Clear to auscultation bilaterally. ABDOMEN: Soft, non-distended, non-tender. No CVA TTP. Normal BS. EXTREMITIES: Normal ROM in all four extremities. No gross deformities. SKIN: Warm, dry. No rash NEUROLOGICAL: No focal neurological deficits. ED Treatment Course - LABORATORY CBC & Chemistry Diagram: 04/10/18 17:07 04/10/18 17:07 Medical Decision Making - Medical Decision Making 37 yo F w a hx of history of WPW, HTN, migraines, polycystic kidney disease, renal stones, recurrent UTIs, s/p tubal ligation, presents from her cardiologists office - Dr. Fry - with a headache, nausea, cough, palpitations and feeling off. She did not take her BP meds today. DD includes but not limited to: SAH, migraine vs tension headache, HTN urgency/ emergency, URI, PNA, ACS, WPW exacerbation. Plan: Cbc, cmp, trop, hcg, EKG, reglan, benadryl, tylenol, her daily bp meds ( hctz, metoprolol), Re-assess. Patient felt much better after the migraine cocktail. BP went down after meds and fluids. Patient will be DCed pending negative head CT. CT showed no acute SAH Will DC patient with PCP FU and return precautions. *DC/Admit/Observation/Transfer Diagnosis at time of Disposition: Migraine - Discharge Dispostion Disposition: HOME Condition at time of disposition: Improved Decision to Admit order: No - Referrals Referrals: Kayleigh Mckoy [Staff Physician] - - Patient Instructions Printed Discharge Instructions: DI for Migraine Additional Instructions: You came into the ER with a headache. We gave you some medications and you felt better. We did an EKG which showed nothing worrisome about your heart. We did a head Cat scan which showed you did not have a brain bleed. Please make sure to schedule a follow up with your PCP in the next 3 to 5 days to make sure you are getting and feeling better. Come back to the ER if your pain worsens, you develop a high fever, or have any other new or worsening concerns. Thank you for coming to the [facility] ER. We hope you feel better soon! Print Language: KHMER - Post Discharge Activity
[2018-04-10] MEDS ORDERED: ACETAMINOPHEN 1000 MG/100 ML VIAL (NON FORMULARY) IVPB ONE (16:38)
[2018-04-10] MEDS ORDERED: SODIUM CHLORIDE 0.9% 500 ML INFUS.BAG IV ONE (16:38)
[2018-04-10] MEDS ORDERED: diphenhydrAMINE HCL 25 MG CAPSULE (FP) PO ONE (16:42)
[2018-04-10] MEDS ORDERED: HYDROCHLOROTHIAZIDE 50 MG TABLET PO ONE (16:45)
[2018-04-10 16:47] VITALS: BMI 21.9
[2018-04-10] MEDS ORDERED: METOCLOPRAMIDE HCL INJECTION 10 MG/2 ML VIAL IVPUSH ONE (16:54)
[2018-04-10 17:18] LABS: BASO % 0.5 % (0-2.0); EOS % 1.1 % (0-4.5); HEMOGLOBIN 11.9 GM/dL (10.7-15.3); LYMPH % 21.4 % (8-40); MCH 32.7 pg (25.7-33.7); MEAN CELL VOLUME 99.2 fl (80-96); MEAN PLT VOLUME 8.3 fl (7.5-11.1); MONO % 5.2 % (3.8-10.2); NEUT % 71.8 % (42.8-82.8); PLATELET COUNT 220 K/MM3 (134-434); RBC 3.63 M/mm3 (3.60-5.2); RDW 12.9 % (11.6-15.6); WHITE BLOOD COUNT 8.3 K/mm3 (4.0-10.0)
[2018-04-10] MEDS ORDERED: METOCLOPRAMIDE HCL INJECTION 10 MG/2 ML VIAL ONE (17:24)
[2018-04-10] MEDS ORDERED: HYDROCHLOROTHIAZIDE 25 MG TABLET (FP) ONE (17:25)
[2018-04-10 17:45] LABS: ALBUMIN 4.1 g/dl (3.4-5.0); ALK PHOS 38 U/L (45-117); ANION GAP 8 MMOL/L (8-16); BILIRUBIN,TOTAL 0.5 mg/dL (0.2-1); BLOOD UREA NITROGEN 17 mg/dL (7-18); CALCIUM 9.1 mg/dL (8.5-10.1); CHLORIDE 105 mmol/L (98-107); CO2 28 mmol/L (21-32); CREATININE 0.5 mg/dL (0.55-1.3); GLUCOSE,RANDOM 86 mg/dL (74-106); POTASSIUM 3.2 mmol/L (3.5-5.1); SGOT/AST 13 U/L (15-37); SGPT/ALT 15 U/L (13-61); SODIUM 141 mmol/L (136-145); TOT PROT 7.6 g/dl (6.4-8.2)
--- NOTE | 2018-04-10 17:52 | PDOC ---
Attending Attestation - Resident Resident Name: Colby Nayak - ED Attending Attestation I have performed the following: I have examined & evaluated the patient, The case was reviewed & discussed with the resident, I agree w/resident's findings & plan, Exceptions are as noted - HPI HPI: 04/10/18 17:52 37 year old female with history of WPW, HTN, migraines, polycystic kidney disease, renal stones, recurrent UTIs, s/p tubal ligation Presents with headache since yesterday. Patient reports an occipital tension-like headache with associated photophobia. Denies fevers or chills or neck stiffness. Patient reports that this feels somewhat different from her migraines. Though she does report history of headaches with photophobia and photophobia. Reports one episode nausea and vomiting. Denies any neurological deficits. Patient reports that she take Tylenol which usually helps of headache but did not help today. Patient saw her web portal developer within sent the patient to the ER for further evaluation. - Physicial Exam PE: 04/10/18 17:55 GENERAL: Awake, alert, and fully oriented, in no acute distress HEAD: No signs of trauma EYES: PERRLA, EOMI, sclera anicteric, conjunctiva clear ENT: Auricles normal inspection, hearing grossly normal, nares patent,Moist mucosa NECK: Normal ROM, supple, LUNGS: Breath sounds equal, clear to auscultation bilaterally. No wheezes, and no crackles HEART: Regular rate and rhythm, normal S1 and S2, no murmurs, rubs or gallops ABDOMEN: Soft, nontender, No guarding, no rebound. No masses EXTREMITIES: Normal range of motion, no edema. No clubbing or cyanosis. No cords, erythema, or tenderness NEUROLOGICAL: Cranial nerves II through XII intact, 5/5 strength and sensation intact in all extremities. no pronator drift. no dysmetria. rapid alternating intact. Normal speech, normal gait SKIN: Warm, Dry, normal turgor, no rashes or lesions noted. - Medical Decision Making 04/10/18 17:56 Vital Signs Temp Pulse Resp BP Pulse Ox 98.1 F 89 18 149/105 H 100 04/10/18 16:42 04/10/18 16:42 04/10/18 16:42 04/10/18 16:42 10/19/18 16:42 I suspect patient is likely having a migraine headache. Given that the patient has history positive for kidney disease, patient is at risk for potential brain aneurysm. However, the history does not appear to be consistent with a subarachnoid hemorrhage. After discussed the case with patient's primary care physician, we'll obtain a head CT and reassess. Will trial medications and reassess. Patient denies any chest pain or shortness of breath to me. 04/10/18 18:24 CBC, BMP 04/10/18 17:07 04/10/18 17:07 CMP Sodium 141 mmol/L (136-145) 04/10/18 17:07 Potassium 3.2 mmol/L (3.5-5.1) L 04/10/18 17:07 Chloride 105 mmol/L (98-107) 04/10/18 17:07 Carbon Dioxide 28 mmol/L (21-32) 04/10/18 17:07 Anion Gap 8 MMOL/L (8-16) 04/10/18 17:07 BUN 17 mg/dL (7-18) 04/10/18 17:07 Creatinine 0.5 mg/dL (0.55-1.3) L 04/10/18 17:07 Creat Clearance w eGFR > 60 (>60) 04/10/18 17:07 Random Glucose 86 mg/dL (74-106) 04/10/18 17:07 Calcium 9.1 mg/dL (8.5-10.1) 04/10/18 17:07 Total Bilirubin 0.5 mg/dL (0.2-1) 04/10/18 17:07 AST 13 U/L (15-37) L 04/10/18 17:07 ALT 15 U/L (13-61) 04/10/18 17:07 Alkaline Phosphatase 38 U/L (45-117) L 04/10/18 17:07 Troponin I < 0.02 ng/ml (0.00-0.05) 04/10/18 17:07 Total Protein 7.6 g/dl (6.4-8.2) 04/10/18 17:07 Albumin 4.1 g/dl (3.4-5.0) 04/10/18 17:07 Pt reports feeling significantly better with the headache migraine cocktail. If the head CT is unremarkable, I feel comfortable calling this a migraine and have the patient follow up with the PMD. NIH Stroke Scale - Last Known Well Date/Time & Onset Date Last Known Well: 04/09/18 - Initial Evaluation Level of consciousness: Alert Ask patient the month and their age: Answers both correctly Ask patient to open & close eyes; make fist and let go: Obeys both correctly Best gaze (horizontal eye movement): Normal Visual field testing: No visual field loss Facial paresis (Show teeth/raise eyebrows/close eyes tight): Normal symmetrical movement Motor Function: Left Arm: Normal Motor Function: Right Arm: Normal (extends arm 90 (or 45) degrees for 10 seconds without drift Motor Function: Left Leg: Normal (extends leg 30 degrees for 5 seconds without drift) Motor Function: Right Leg: Normal (extends leg 30 degrees for 5 seconds without drift) Limb Ataxia: No ataxia Sensory(Use pinprick test arms,legs,trunk,face/side to side): Normal Best language (Describe picture, name items, read sentences): No Aphasia Dysarthria (read several words): Normal articulation Extinction and Inattention: No abnormality - Total Score NIH Stroke Scale Score: 0
[2018-04-10] MEDS ORDERED: POTASSIUM CHLORIDE TABS 20 MEQ TABLET.ER (FP) PO ONE (17:55)
[2018-04-10] MEDS ORDERED: POTASSIUM CHLORIDE TABS 10 MEQ TABLET.ER (FP) ONE (18:05)
[2018-04-10] MEDS ORDERED: ACETAMINOPHEN INJECTION 100 ML IVPB ONE (18:05)
[2018-04-10 19:56] VITALS: BP 119/86; PULSE 76; TEMP 98.2
--- NOTE | 2018-04-11 18:04 | EKG ---
Test Reason : Blood Pressure : / mmHG Vent. Rate : 076 BPM Atrial Rate : 076 BPM P-R Int : 130 ms QRS Dur : 108 ms QT Int : 410 ms P-R-T Axes : 062 033 040 degrees QTc Int : 461 ms NORMAL SINUS RHYTHM NONSPECIFIC T WAVE ABNORMALITY PROLONGED QT ABNORMAL ECG WHEN COMPARED WITH ECG OF 28-SEP-2015 20:34, NO SIGNIFICANT CHANGE WAS FOUND Confirmed by MIKA MART MD ([id number]) on 04/11/2018 6:03:51 PM Referred By: Confirmed By:MIKA MART MD
== END 2018-04-10 19:59 | disposition home or self-care (01) ==
LOC: JER 15:59
PROC: 3E033GC Introduction of Other Therapeutic Substance into Peripheral Vein, Percutaneous Approach (ICD-10-PCS; principal; 2018-04-10)
PROC: 3E033NZ Introduction of Analgesics, Hypnotics, Sedatives into Peripheral Vein, Percutaneous Approach (ICD-10-PCS; 2018-04-10)
DX: G43.909 Migraine, unspecified, not intractable, without status migrainosus (principal); I10 Essential (primary) hypertension; I45.6 Pre-excitation syndrome; E28.2 Polycystic ovarian syndrome; Z87.440 Personal history of urinary (tract) infections
CPT/HCPCS: 36415; 70450-TC; 80053; 84484; 84703; 85025; 93005; 93010; 99283-25; J0131

== ENCOUNTER 2019-01-27 09:21 | Day surgery (SDC) | payer BC ==
[2019-01-22 09:36] VITALS: BMI 21.4
[2019-01-27] MEDS ORDERED: MIDAZOLAM HCL 2 MG/2 ML SINGLE DOSE VIAL ONE (11:17)
[2019-01-27] MEDS ORDERED: LIDOCAINE HCL/PF 2% SDV 5ML VIAL ONE (11:24)
[2019-01-27 11:47] VITALS: TEMP 98.6
[2019-01-27 12:14] VITALS: PULSE 61
[2019-01-27 12:31] VITALS: BP 125/86
--- NOTE | 2019-02-02 12:24 | PATH ---
Surgical Pathology Report Patient Name: BENITO BERMUDEZ [facility]. Rec. #: [id number] /Age/Gender: 1980 (Age: 38) / F Account: [id number] [facility] Taken: 01/27/2019 Received: 01/27/2019 Reported: 02/02/2019 Physicians: Sujata Rizvi M.D. Specimen(s) Received A: SECOND PORTION DUODENUM B: ANTRUM C: GE JUNCTION Clinical History GERD Postoperative diagnosis: Gastritis Final Diagnosis A. 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 B. GASTRIC ANTRUM, BIOPSY: MILD CHRONIC GASTRITIS. IMMUNOSTAIN IS NEGATIVE FOR H. PYLORI ORGANISMS. C. GE JUNCTION, BIOPSY: COLUMNAR (GASTRIC-TYPE) MUCOSA SHOWING MILD CHRONIC INFLAMMATION. NEGATIVE FOR INTESTINAL METAPLASIA. Electronically Signed Rosalind Mirza M.D. Gross Description A. Received in formalin, labeled "biopsy second portion of duodenum" is a lewis, irregular portion of soft tissue measuring 0.4 cm. in greatest dimension. The specimen is submitted in toto in one cassette. B. Received in formalin, labeled "biopsy gastric antrum" is a lewis, irregular portion of soft tissue measuring 0.6 cm. in greatest dimension. The specimen is submitted in toto in one cassette. C. Received in formalin, labeled "biopsy GE junction" is a lewis, irregular portion of soft tissue measuring 0.4 cm. in greatest dimension. The specimen is submitted in toto in one cassette. 01/28/2019 saudi01/28/2019
== END 2019-01-27 12:31 | disposition home or self-care (01) ==
LOC: FASU 09:21
PROVIDERS: ATTEND Internal Medicine Gastroenterology
PROC: 0DB68ZX Excision of Stomach, Via Natural or Artificial Opening Endoscopic, Diagnostic (ICD-10-PCS; 2019-01-27)
PROC: 0DB48ZX Excision of Esophagogastric Junction, Via Natural or Artificial Opening Endoscopic, Diagnostic (ICD-10-PCS; 2019-01-27)
PROC: 0DB98ZX Excision of Duodenum, Via Natural or Artificial Opening Endoscopic, Diagnostic (ICD-10-PCS; principal; 2019-01-27 11:28)
DX: K29.80 Duodenitis without bleeding (principal); K29.50 Unspecified chronic gastritis without bleeding; K31.89 Other diseases of stomach and duodenum; R10.13 Epigastric pain
CPT/HCPCS: 84703; 88305-TC; 88342-TC

== ENCOUNTER 2021-05-30 13:05 | Emergency (ER) | payer BC ==
[2021-05-30 13:41] VITALS: BP 129/86; PULSE 67; TEMP 97.8; BMI 21.9
[2021-05-30] MEDS ORDERED: ACETAMINOPHEN 1000 MG/100 ML VIAL IVPB ONE (14:48)
[2021-05-30] MEDS ORDERED: SODIUM CHLORIDE 1,000 ML IV STA (14:54)
[2021-05-30] MEDS ORDERED: ACETAMINOPHEN INJECTION 100 ML IVPB ONE ×2 (15:21→16:31)
[2021-05-30 16:17] LABS: EPI CELLS 30 /uL (0-25.1); HYALINE CASTS 0 /uL (0-3.1); PH,URINE 7.5 (5.0-8.0); URINE APPEARANCE CLEAR; URINE BACTERIA 262 /uL (0-1359); URINE BILIRUBIN NEGATIVE (NEGATIVE); URINE COLOR YELLOW; URINE GLUCOSE (UA) NEGATIVE (NEGATIVE); URINE KETONE NEGATIVE (NEGATIVE); URINE LEUK ESTERASE TRACE (NEGATIVE); URINE NITRITE NEGATIVE (NEGATIVE); URINE PROTEIN NEGATIVE (NEGATIVE); URINE RBC 10 /uL (0-23.9); URINE UROBILINOGEN 0.2 mg/dL (0.2-1.0); URINE WBC 6 /uL (0-25.8)
[2021-05-30 16:25] LABS: BASO % 0.6 % (0-2.0); EOS % 2.7 % (0-4.5); HEMATOCRIT 37.6 % (32.4-45.2); HEMOGLOBIN 12.8 GM/dL (10.7-15.3); LYMPH % 32.8 % (8-40); MCH 33.5 pg (25.7-33.7); MCHC 34.1 g/dl (32.0-36.0); MEAN CELL VOLUME 98.4 fl (80-96); MEAN PLT VOLUME 8.4 fl (7.5-11.1); MONO % 5.8 % (3.8-10.2); NEUT % 58.1 % (42.8-82.8); PLATELET COUNT 250 10^3/uL (134-434); RBC 3.82 M/mm3 (3.60-5.2); RDW 12.9 % (11.6-15.6); WHITE BLOOD COUNT 6.4 K/mm3 (4.0-10.0)
[2021-05-30 16:36] LABS: CALCIUM 9.3 mg/dL (8.5-10.1)
[2021-05-30 16:37] LABS: ALBUMIN 4.1 g/dl (3.4-5.0); BLOOD UREA NITROGEN 7.7 mg/dL (7-18)
[2021-05-30 16:40] LABS: CREATININE 0.5 mg/dL (0.55-1.3)
[2021-05-30 16:41] LABS: BILIRUBIN,TOTAL 0.5 mg/dL (0.2-1)
[2021-05-30 16:42] LABS: TOT PROT 8.2 g/dl (6.4-8.2)
== END 2021-05-30 20:09 | disposition home or self-care (01) ==
LOC: JER 13:05
PROC: 3E033GC Introduction of Other Therapeutic Substance into Peripheral Vein, Percutaneous Approach (ICD-10-PCS; principal; 2021-05-30)
DX: R10.9 Unspecified abdominal pain (principal)
CPT/HCPCS: 36415; 74176-TC; 80053; 81003; 83690; 85025; 87086; 99285-25; J0131

== ENCOUNTER 2021-11-14 16:11 | Emergency (ER) | payer BC, OTHER ==
[2021-11-14 16:27] VITALS: BMI 21.0
[2021-11-14] MEDS ORDERED: BEBTELOVIMAB (EUA) 175 MG/2 ML VIAL IVPUSH ONE (16:50)
[2021-11-14 18:28] VITALS: BP 130/76; PULSE 73; TEMP 98.3
== END 2021-11-14 19:07 | disposition home or self-care (01) ==
LOC: JER 16:11
PROC: 3E033NZ Introduction of Analgesics, Hypnotics, Sedatives into Peripheral Vein, Percutaneous Approach (ICD-10-PCS; principal; 2021-11-14)
DX: U07.1 COVID-19 (principal)
CPT/HCPCS: 99283-25; Q0222

== ENCOUNTER 2023-02-28 01:28 | Emergency (ER) | payer BC ==
[2023-02-28 01:36] VITALS: BP 129/77; PULSE 71; RESP 16; TEMP 98.6; BMI 21.0
[2023-02-28] MEDS ORDERED: ONDANSETRON 4 MG/2 ML VIAL IVPUSH ONE (01:51)
[2023-02-28] MEDS ORDERED: SODIUM CHLORIDE 1,000 ML IV ONE (01:51)
[2023-02-28] MEDS ORDERED: ONDANSETRON 4 MG/2 ML VIAL ONE (01:55)
[2023-02-28] MEDS ORDERED: KETOROLAC TROMETHAMINE 30 MG/1 ML VIAL IVPUSH ONE (01:56)
[2023-02-28] MEDS ORDERED: ACETAMINOPHEN 1000 MG/100 ML BAG IVPB ONE (02:03)
[2023-02-28] MEDS ORDERED: ACETAMINOPHEN INJECTION 100 ML IVPB ONE (02:09)
[2023-02-28 03:07] LABS: HEMOGLOBIN 10.5 GM/dL (10.7-15.3); MCH 32.5 pg (25.7-33.7); MCHC 33.8 g/dl (32.0-36.0); MEAN CELL VOLUME 96.1 fl (80-96); MEAN PLT VOLUME 8.7 fl (7.5-11.1); PLATELET COUNT 208 10^3/uL (134-434); RBC 3.23 M/mm3 (3.60-5.2); WHITE BLOOD COUNT 10.7 K/mm3 (4.0-10.0)
[2023-02-28 03:11] LABS: EPI CELLS 17 /uL (0-25.1); HYALINE CASTS 2 /uL (0-3.1); URINE APPEARANCE CLOUDY; URINE BACTERIA >9,000 /uL (0-1359); URINE BILIRUBIN NEGATIVE (NEGATIVE); URINE COLOR YELLOW; URINE GLUCOSE (UA) NEGATIVE (NEGATIVE); URINE KETONE TRACE (NEGATIVE); URINE LEUK ESTERASE 3+ (NEGATIVE); URINE NITRITE NEGATIVE (NEGATIVE); URINE PROTEIN TRACE (NEGATIVE); URINE RBC 30 /uL (0-23.9); URINE UROBILINOGEN 0.2 mg/dL (0.2-1.0); URINE WBC 613 /uL (0-25.8)
[2023-02-28 03:18] LABS: HCG,QUALITATIVE URINE Negative
[2023-02-28] MEDS ORDERED: NITROFURANTOIN MACROCRYSTAL 50 MG CAPSULE (FP) ONE (03:29)
[2023-02-28] MEDS ORDERED: NITROFURANTOIN MACROCRYSTAL 50 MG CAPSULE (FP) PO ONE (03:30)
[2023-02-28 04:02] LABS: POTASSIUM 3.4 mmol/L (3.5-5.1)
[2023-02-28 04:05] LABS: CALCIUM 8.1 mg/dL (8.5-10.1)
[2023-02-28 04:06] LABS: ALBUMIN 3.4 g/dl (3.4-5.0); BLOOD UREA NITROGEN 14.1 mg/dL (7-18)
[2023-02-28 04:08] LABS: CREATININE 0.6 mg/dL (0.55-1.3)
[2023-02-28 04:10] LABS: BILIRUBIN,TOTAL 0.8 mg/dL (0.2-1); TOT PROT 6.6 g/dl (6.4-8.2)
== END 2023-02-28 04:30 | disposition home or self-care (01) ==
LOC: FER 01:28 → SUPCPDRO 01:28 → FER 04:30
PROC: 3E033NZ Introduction of Analgesics, Hypnotics, Sedatives into Peripheral Vein, Percutaneous Approach (ICD-10-PCS; principal; 2023-02-28)
PROC: 3E033GC Introduction of Other Therapeutic Substance into Peripheral Vein, Percutaneous Approach (ICD-10-PCS; 2023-02-28)
PROC: 3E0337Z Introduction of Electrolytic and Water Balance Substance into Peripheral Vein, Percutaneous Approach (ICD-10-PCS; 2023-02-28)
DX: R10.11 Right upper quadrant pain (principal); R11.0 Nausea; R53.1 Weakness; R53.83 Other fatigue; N39.0 Urinary tract infection, site not specified
CPT/HCPCS: 36415; 76705-TC; 80053; 81003; 83690; 84703; 85027; 87086; 87186; 99284-25

== ENCOUNTER 2023-02-28 18:37 | Emergency (ER) | payer BC ==
[2023-02-28 18:44] VITALS: BMI 21.9
[2023-02-28] MEDS ORDERED: SODIUM CHLORIDE 0.9% 500 ML INFUS.BAG IV ONE (19:41)
[2023-02-28] MEDS ORDERED: ONDANSETRON 4 MG/2 ML VIAL IVPUSH ONE (20:09)
[2023-02-28] MEDS ORDERED: ACETAMINOPHEN 1000 MG/100 ML BAG IVPB ONE (20:09)
[2023-02-28 20:22] LABS: EPI CELLS 19 /uL (0-25.1); HYALINE CASTS 0 /uL (0-3.1); PH,URINE 7.5 (5.0-8.0); URINE APPEARANCE CLEAR; URINE BACTERIA 721 /uL (0-1359); URINE BILIRUBIN NEGATIVE (NEGATIVE); URINE COLOR YELLOW; URINE GLUCOSE (UA) NEGATIVE (NEGATIVE); URINE KETONE 3+ (NEGATIVE); URINE LEUK ESTERASE 2+ (NEGATIVE); URINE NITRITE NEGATIVE (NEGATIVE); URINE PROTEIN NEGATIVE (NEGATIVE); URINE RBC 113 /uL (0-23.9); URINE UROBILINOGEN 0.2 mg/dL (0.2-1.0); URINE WBC 65 /uL (0-25.8)
[2023-02-28 20:34] LABS: BASO % 0.4 % (0-2.0); EOS % 0.9 % (0-4.5); HEMATOCRIT 31.5 % (32.4-45.2); HEMOGLOBIN 10.8 GM/dL (10.7-15.3); MCH 32.1 pg (25.7-33.7); MCHC 34.1 g/dl (32.0-36.0); MEAN CELL VOLUME 94.2 fl (80-96); MONO % 7.6 % (3.8-10.2); NEUT % 74.1 % (42.8-82.8); PLATELET COUNT 199 10^3/uL (134-434); RBC 3.35 M/mm3 (3.60-5.2); RDW 13.4 % (11.6-15.6); WHITE BLOOD COUNT 10.3 K/mm3 (4.0-10.0)
[2023-02-28] MEDS ORDERED: ACETAMINOPHEN INJECTION 100 ML IVPB ONE (20:36)
[2023-02-28] MEDS ORDERED: ONDANSETRON 4 MG/2 ML VIAL ONE (20:37)
[2023-02-28 20:42] LABS: POTASSIUM 3.2 mmol/L (3.5-5.1)
[2023-02-28 20:44] LABS: ALBUMIN 3.6 g/dl (3.4-5.0); BLOOD UREA NITROGEN 8.9 mg/dL (7-18); CALCIUM 8.7 mg/dL (8.5-10.1)
[2023-02-28 20:47] LABS: CREATININE 0.6 mg/dL (0.55-1.3)
[2023-02-28 20:49] LABS: BILIRUBIN,TOTAL 0.7 mg/dL (0.2-1); TOT PROT 7.4 g/dl (6.4-8.2)
[2023-02-28] MEDS ORDERED: CEFTRIAXONE 1,000 MG in DEXTROSE 5%-WATER - 50 ML IVPB ONE (20:53)
[2023-02-28] MEDS ORDERED: POTASSIUM CHLORIDE TABS 20 MEQ TABLET.ER (FP) PO ONE ×2 (20:53→21:13)
[2023-02-28] MEDS ORDERED: CEFTRIAXONE 1 GM/50 ML BAG ONE (21:13)
[2023-02-28] MEDS ORDERED: HYDROmorphone HCl 2 MG/ML VIAL IVPUSH ONE (22:12)
[2023-02-28] MEDS ORDERED: HYDROmorphone HCl 2 MG/ML VIAL ONE (22:17)
[2023-03-01 00:44] VITALS: BP 115/75; PULSE 73; RESP 15; TEMP 98.1
== END 2023-03-01 00:55 | disposition home or self-care (01) ==
LOC: JER 18:37
PROC: 3E03329 Introduction of Other Anti-infective into Peripheral Vein, Percutaneous Approach (ICD-10-PCS; principal; 2023-02-28)
PROC: 3E033NZ Introduction of Analgesics, Hypnotics, Sedatives into Peripheral Vein, Percutaneous Approach (ICD-10-PCS; 2023-02-28)
PROC: 3E033NZ Introduction of Analgesics, Hypnotics, Sedatives into Peripheral Vein, Percutaneous Approach (ICD-10-PCS; 2023-02-28)
PROC: 3E033NZ Introduction of Analgesics, Hypnotics, Sedatives into Peripheral Vein, Percutaneous Approach (ICD-10-PCS; 2023-02-28)
DX: M54.9 Dorsalgia, unspecified (principal); R10.30 Lower abdominal pain, unspecified; M79.10 Myalgia, unspecified site; R05.9 Cough, unspecified; R09.81 Nasal congestion; K59.09 Other constipation; R11.0 Nausea; N12 Tubulo-interstitial nephritis, not specified as acute or chronic; Z20.822 Contact with and (suspected) exposure to COVID-19
CPT/HCPCS: 0241U-QW; 36415; 71046-TC-FY; 74176-TC; 80053; 81003; 83605; 84703; 85025; 87040; 87086; 99285-25

== ENCOUNTER 2023-08-12 03:52 | Day surgery (SDC) | payer BC, OTHER ==
[2023-08-06 11:27] VITALS: BMI 21.2
[2023-08-12] MEDS ORDERED: MIDAZOLAM HCL 2 MG/2 ML SINGLE DOSE VIAL ONE (10:12)
[2023-08-12] MEDS ORDERED: PROMETHAZINE HCL 25 MG/1 ML VIAL IVPB PRN (11:16)
[2023-08-12] MEDS ORDERED: oxyCODONE HCL 5 MG TABLET PO PRN ×2 (11:16→11:24)
[2023-08-12] MEDS ORDERED: ONDANSETRON 4 MG/2 ML VIAL IVPUSH PRN (11:24)
[2023-08-12] MEDS: ACETAMINOPHEN 1000 MG/100 ML BAG IVPB ONE (11:30)
[2023-08-12] MEDS ORDERED: ELECTROLYTE-148 SOLN 1,000 ML IV SCH (11:30)
[2023-08-12] MEDS ORDERED: LACTATED RINGERS SOLUTION 1,000 ML IV SCH (11:30)
[2023-08-12 12:01] VITALS: RESP 16
[2023-08-12 13:17] VITALS: BP 124/74; PULSE 60; TEMP 97.7
== END 2023-08-12 13:10 | disposition home or self-care (01) ==
LOC: JASU-SURG 03:52
PROVIDERS: ATTEND Obstetrics & Gynecology
PROC: 0UB98ZZ Excision of Uterus, Via Natural or Artificial Opening Endoscopic (ICD-10-PCS; principal; 2023-08-12 10:00)
DX: N92.0 Excessive and frequent menstruation with regular cycle (principal); N84.0 Polyp of corpus uteri
CPT/HCPCS: 81025; 88305-TC; 94760; J0131